=== PATIENT | female | born 1930 | race Caucasian/White ===

== ENCOUNTER 2017-11-18 10:50 | Outpatient (CLI) | payer MEDICARE ==
--- NOTE | 2017-11-18 12:55 | ULT ---
BILATERAL RENAL ULTRASOUND: HISTORY: An 87-year-old female with recurrent UTIs. FINDINGS: The right kidney measures 8 cm in length, and the left kidney measures 9.4 cm in length. No focal ma ss or hydronephrosis is seen on either side. There is mild cortical thinning. There is a small amou nt of urine in the urinary bladder with a volume of 52 mL. IMPRESSION: No evidence of high-grade obstruction. POS: JULIANNE
== END 2017-11-18 10:51 | disposition home or self-care (01) ==
LOC: SCSULT 10:50
PROVIDERS: ATTEND Urology
DX: N39.0 Urinary tract infection, site not specified (principal)
CPT/HCPCS: 76770

== ENCOUNTER 2018-01-13 10:30 | Outpatient (CLI) | payer MEDICARE ==
--- NOTE | 2018-01-13 12:21 | RAD ---
BARIUM SWALLOW ESOPHAGUS: HISTORY: An 88-year-old female with a history of dysphagia, as well as gastroesophageal reflux disease without esophagitis. Chronic cough. FINDINGS: Swallowing function is within normal limits. No lenin aspiration is noted. There is some tertiary p eristalsis of the mid and distal esophagus. There is a moderately large sliding hiatal hernia. Kerrie roesophageal reflux was documented. No stricture, ulcer, or mass. IMPRESSION: Moderate sized hiatal hernia with gastroesophageal reflux. Minimal tertiary peristalsis. No strictu re, ulcer, or mass, Swallowed barium tablet passed readily into the herniated stomach. POS: MEIR
== END 2018-01-13 10:31 | disposition home or self-care (01) ==
LOC: RAD 10:30
PROVIDERS: ATTEND Internal Medicine Gastroenterology
DX: K21.9 Gastro-esophageal reflux disease without esophagitis (principal); R13.10 Dysphagia, unspecified; R05 Cough; R11.0 Nausea; K44.9 Diaphragmatic hernia without obstruction or gangrene; R19.2 Visible peristalsis
CPT/HCPCS: 74220

== ENCOUNTER 2020-03-20 10:23 | Outpatient (CLI) | payer MEDICARE ==
--- NOTE | 2020-03-20 13:46 | RAD ---
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 Cardiac silhouette remains enla rged. Pulmonary vasculature is within normal limits. Mild chronic lung changes are again seen. Vascular calcifications are seen in the thoracic aorta. Hiatal hernia is seen in the midline lower me diastinum. Osteopenia is present. Single contrast esophagram was performed. There is decrease in primary esophageal peristalsis with te rtiary contractions seen throughout the exam. Again noted is evidence of a hiatal hernia with the fundus and proximal body of the stomach above the level of the hemidiaphragm similar to prior exam. N o focal persistent narrowing is seen within the esophagus. A 12.5 mm barium tablet was administered during the exam which traverses the esophagus and GE junction freely and without holdup. No gastroeso phageal reflux was demonstrated during this exam. IMPRESSION: 1. Decreased primary esophageal peristalsis with tertiary contractions. 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 2. Evidence of hiatal hernia. 3. A 12.5 mm barium tablet traversed the esophagus and GE junction freely and without holdup.
== END 2020-03-20 10:24 | disposition home or self-care (01) ==
LOC: RAD 10:23
PROVIDERS: ATTEND Internal Medicine
DX: R13.10 Dysphagia, unspecified (principal); R10.13 Epigastric pain; K44.9 Diaphragmatic hernia without obstruction or gangrene; K22.8 Other specified diseases of esophagus
CPT/HCPCS: 74220

== ENCOUNTER 2020-10-18 09:47 | Inpatient (IN) | payer MEDICARE ==
[2020-10-18 10:26] LABS: #Basophils 0.1 thou/uL (0.0-0.2); #Eosinphils 0.3 thou/uL (0.0-0.7); #Lymphocytes 1.5 thou/uL (1.20-3.40); #Monocytes 0.9 thou/uL (0.11-0.59); #Neutrophils 5.2 thou/uL (1.40-6.50); %Basophils 0.8 % (0.0-1.0); %Eosinophils 3.9 % (0.0-10.0); %Monocytes 11.7 % (0.0-10.0); %Neutrophils 64.6 % (42.0-75.0); Hemoglobin 12.1 g/dL (12.0-16.0); Mean Corpuscular HGB CONC 31.7 g/dL (32.0-36.0); Mean Corpuscular Hemoglobin 29.4 pg (27.0-31.0); Mean Corpuscular Volume 92.8 fL (78.0-98.0); Mean Platelet Volume 9.1 fL (7.4-10.4); Platelet Count 241 thou/uL (130-400); RBC Distribution Width 12.6 % (11.5-14.5)
[2020-10-18] MEDS ORDERED: Furosemide 40 MG/4 ML VIAL ONE (10:39)
[2020-10-18] MEDS ORDERED: Nitroglycerin 2% Ointment 1 INCH/1 GM Packet ONE (10:39)
[2020-10-18 10:50] LABS: ALT (SGPT) 15 U/L (8-55); AST (SGOT) 23 U/L (5-34); Albumin 4.4 g/dL (3.4-4.8); Alkaline Phosphatase 75 U/L (40-110); Anion Gap 13 mmol/L (10-20); BUN (Urea Nitrogen) 21 mg/dL (9.8-20.1); Bilirubin, Total 0.4 mg/dL (0.2-1.2); Calc. Creatinine Clearance 0 mL/min (70-130); Calcium 10.4 mg/dL (7.8-10.44); Carbon Dioxide 32 mmol/L (23-31); Chloride 92 mmol/L (98-107); Globulin 3.6 g/dL (2.4-3.5); Glucose 124 mg/dL (83-110); Potassium 3.8 mmol/L (3.5-5.1); Sodium 133 mmol/L (136-145)
[2020-10-18 11:06] LABS: Actual Bicarbonate (HCO3a) 34.1 mEq/L (22-28); Analyzer IN Cardio ER; Base Excess (BEa) 8.3 mEq/L (-2.0 to +3.0); CO2 Tension 53.2 mmHg (35.0-45.0); Calcium, Ionized (arterial) 1.24 mmol/L (1.12-1.30); Carboxyhemoglobin (COHb) 0.4 gm% (0.0-3.0); Hemoglobin (Hb) 11.8 g/dL (12.0-16.0); pH, Arterial 7.43 (7.35-7.45)
[2020-10-18 11:08] LABS: O2 Tension (PaO2), arterial 56.9 mmHg (> 60.0); Puncture Site RBA
[2020-10-18 11:12] LABS: CKMB 1.8 ng/mL (0-6.6)
[2020-10-18 11:53] LABS: SARS-CoV-2 NAA Rapid Test Not Detected (NotDetected)
[2020-10-18] MEDS ORDERED: Aspirin Chewable 81 MG TAB ONE (12:07)
[2020-10-18] MEDS ORDERED: Acetaminophen 325 MG TAB PO PRN (12:54)
[2020-10-18] MEDS ORDERED: Iopamidol-370 76% 500 ML 1 ML ONE (13:02)
[2020-10-18] MEDS ORDERED: Enoxaparin Sodium 30 MG/0.3 ML SYRINGE SC SCH (13:15)
[2020-10-18 13:52] LABS: Bacteria/HPF 1+ HPF (None Seen); Bilirubin Negative (Negative); Blood, Urine Negative (Negative); Clarity Clear (Clear); Glucose, Urine (Dipstick) Normal (Negative); Ketone, Urine Negative (Negative); Leukocyte Negative Leu/uL (Negative); Nitrite 1+ (Negative); Protein, Urine (Dipstick) Negative (Neg-Trace); RBC/HPF None Seen HPF (0-3); Specific Gravity, Urine 1.013 (1.002-1.036); Squamous Epithelial None Seen HPF (0-3); Urobilinogen Normal mg/dL (Less than 2); WBC/HPF None Seen HPF (0-3); pH, Urine 6.5 (5.0-9.0)
[2020-10-18 18:35] LABS: CKMB 1.5 ng/mL (0-6.6)
[2020-10-18] MEDS ORDERED: Furosemide 20 MG/2 ML VIAL SLOW IVP SCH (21:00)
[2020-10-18] MEDS ORDERED: Acetaminophen 500 MG TAB PO PRN (21:02)
[2020-10-18] MEDS ORDERED: Lisinopril 10 MG TAB PO SCH (21:45)
[2020-10-18] MEDS ORDERED: Carvedilol 6.25 MG TAB PO SCH (21:45)
[2020-10-18] MEDS ORDERED: Atorvastatin Calcium 40 MG TAB PO SCH (21:45)
[2020-10-19] MEDS: Guaifenesin DM 100-10/5 ML UDCUP PO SCH ×6 (00:44→19:56)
[2020-10-19] MEDS ORDERED: Carvedilol 6.25 MG TAB PO SCH (01:29)
[2020-10-19] MEDS ORDERED: Enoxaparin Sodium 40 MG/0.4 ML SYRINGE SC SCH (01:30)
[2020-10-19] MEDS ORDERED: Heparin 10,000 UNITS/ 10 ML VIAL SLOW IVP SCH (01:30)
[2020-10-19] MEDS ORDERED: Heparin 25,000 units/D5W 500 ML IVPB SCH (01:30)
[2020-10-19] MEDS ORDERED: Enoxaparin Sodium 60 MG/0.6 ML SYRINGE SC SCH (02:00)
[2020-10-19 02:20] LABS: Eosinophils 1 % (0-10); Hemoglobin 11.2 g/dL (12.0-16.0); Hypochromia SLIGHT = 6-15 cells (100X) (0-5/hpf); Lymphocytes 19 % (21-51); MDiff Complete? YES; Mean Corpuscular HGB CONC 33.4 g/dL (32.0-36.0); Mean Corpuscular Hemoglobin 30.7 pg (27.0-31.0); Mean Corpuscular Volume 91.7 fL (78.0-98.0); Mean Platelet Volume 8.9 fL (7.4-10.4); Monocytes 14 % (0-10); Neutrophil 66 % (42-75); Platelet Count 209 thou/uL (130-400); Platelet Morphology Comment Appears Adequate; RBC Distribution Width 12.6 % (11.5-14.5); Red Blood Cell (RBC) Count 3.65 mill/uL (4.20-5.40); White Blood Cell (WBC) Count 6.1 thou/uL (4.8-10.8)
[2020-10-19 02:47] LABS: Anion Gap 17 mmol/L (10-20); BUN (Urea Nitrogen) 18 mg/dL (9.8-20.1); Calc. Creatinine Clearance 33 mL/min (70-130); Calcium 9.9 mg/dL (7.8-10.44); Carbon Dioxide 29 mmol/L (23-31); Chloride 90 mmol/L (98-107); Glucose 124 mg/dL (83-110); Magnesium 1.5 mg/dL (1.6-2.6); Potassium 3.1 mmol/L (3.5-5.1); Sodium 133 mmol/L (136-145)
[2020-10-19] MEDS ORDERED: Potassium Chloride 40 MEQ in Sodium Chloride 0.9% 250 ML 250 ML IVPB SCH (03:00)
[2020-10-19 05:43] LABS: CKMB 2.2 ng/mL (0-6.6)
[2020-10-19] MEDS: Amlodipine 5 MG TAB PO SCH (08:38)
[2020-10-19] MEDS: Aspirin 81 mg Enteric Coated Tablet PO SCH (08:38)
[2020-10-19] MEDS: Famotidine 20 MG TAB PO SCH (08:39)
[2020-10-19] MEDS: Calcium Carbonate 600 MG + Vit D TAB PO SCH (08:39)
[2020-10-19] MEDS: Carvedilol 6.25 MG TAB PO SCH ×2 (08:39→19:57)
[2020-10-19] MEDS: Lisinopril 10 MG TAB PO SCH ×2 (08:40→19:58)
[2020-10-19] MEDS ORDERED: Furosemide 40 MG/4 ML VIAL SLOW IVP SCH (09:00)
[2020-10-19] MEDS ORDERED: Enoxaparin Sodium 30 MG/0.3 ML SYRINGE SC SCH (09:00)
[2020-10-19] MEDS ORDERED: cefTRIAXone\\ROCEPHIN 1 GM in Sodium Chloride 0.9% 100 ML IVPB SCH (10:00)
[2020-10-19] MEDS: Amiodarone 450 MG in Dextrose 5% in Water 250 ML IVPB SCH (18:28)
[2020-10-19] MEDS: Potassium Chloride 10 MEQ TAB PO SCH (19:57)
[2020-10-19] MEDS: Atorvastatin Calcium 40 MG TAB PO SCH (19:58)
[2020-10-19] MEDS: Enoxaparin Sodium 40 MG/0.4 ML SYRINGE SC SCH (19:58)
[2020-10-19] MEDS ORDERED: Apixaban 2.5 MG TAB PO SCH (21:00)
[2020-10-20] MEDS: Guaifenesin DM 100-10/5 ML UDCUP PO SCH ×6 (00:32→20:59)
[2020-10-20] MEDS: Amiodarone 450 MG in Dextrose 5% in Water 250 ML IVPB SCH (03:20)
[2020-10-20 06:51] LABS: Anion Gap 15 mmol/L (10-20); BUN (Urea Nitrogen) 21 mg/dL (9.8-20.1); Calc. Creatinine Clearance 33 mL/min (70-130); Carbon Dioxide 30 mmol/L (23-31); Chloride 92 mmol/L (98-107); Glucose 122 mg/dL (83-110); Magnesium 1.7 mg/dL (1.6-2.6); Phosphorus 3.9 mg/dL (2.3-4.7); Potassium 3.9 mmol/L (3.5-5.1); Sodium 133 mmol/L (136-145)
[2020-10-20 06:58] LABS: Hemoglobin 11.9 g/dL (12.0-16.0); Mean Corpuscular HGB CONC 31.5 g/dL (32.0-36.0); Mean Corpuscular Hemoglobin 29.1 pg (27.0-31.0); Mean Corpuscular Volume 92.4 fL (78.0-98.0); Mean Platelet Volume 9.7 fL (7.4-10.4); Platelet Count 198 thou/uL (130-400); RBC Distribution Width 12.6 % (11.5-14.5); Red Blood Cell (RBC) Count 4.07 mill/uL (4.20-5.40); White Blood Cell (WBC) Count 7.1 thou/uL (4.8-10.8)
[2020-10-20 06:59] LABS: Eosinophils 11 % (0-10); Lymphocytes 31 % (21-51); MDiff Complete? YES; Monocytes 11 % (0-10); Neutrophil 46 % (42-75); Platelet Morphology Comment Appears Adequate; Reactive Lymphocytes 1 % (0-10)
[2020-10-20] MEDS: Amlodipine 5 MG TAB PO SCH (08:59)
[2020-10-20] MEDS: Enoxaparin Sodium 40 MG/0.4 ML SYRINGE SC SCH ×2 (09:00→20:58)
[2020-10-20] MEDS: Aspirin 81 mg Enteric Coated Tablet PO SCH (09:00)
[2020-10-20] MEDS: Carvedilol 6.25 MG TAB PO SCH ×2 (09:00→20:58)
[2020-10-20] MEDS: Calcium Carbonate 600 MG + Vit D TAB PO SCH (09:00)
[2020-10-20] MEDS: Famotidine 20 MG TAB PO SCH (09:00)
[2020-10-20] MEDS: Lisinopril 10 MG TAB PO SCH ×2 (09:00→20:58)
[2020-10-20] MEDS: Potassium Chloride 10 MEQ TAB PO SCH ×2 (09:00→20:58)
[2020-10-20] MEDS ORDERED: Furosemide 40 MG TAB PO SCH (09:00)
[2020-10-20] MEDS: Cephalexin 250 MG CAP PO SCH ×2 (11:42→16:31)
[2020-10-20 12:03] VITALS: BMI 17.3
[2020-10-20] MEDS: Atorvastatin Calcium 40 MG TAB PO SCH (20:59)
[2020-10-21] MEDS: Cephalexin 250 MG CAP PO SCH ×3 (01:07→10:29)
[2020-10-21] MEDS: Guaifenesin DM 100-10/5 ML UDCUP PO SCH ×3 (01:08→08:24)
[2020-10-21 07:03] LABS: Anion Gap 12 mmol/L (10-20); BUN (Urea Nitrogen) 28 mg/dL (9.8-20.1); Calc. Creatinine Clearance 32 mL/min (70-130); Calcium 9.7 mg/dL (7.8-10.44); Carbon Dioxide 33 mmol/L (23-31); Chloride 91 mmol/L (98-107); Glucose 119 mg/dL (83-110); Potassium 4.2 mmol/L (3.5-5.1); Sodium 132 mmol/L (136-145)
[2020-10-21 08:23] VITALS: TEMP 97.6
[2020-10-21] MEDS: Aspirin 81 mg Enteric Coated Tablet PO SCH (08:24)
[2020-10-21] MEDS: Calcium Carbonate 600 MG + Vit D TAB PO SCH (08:24)
[2020-10-21] MEDS: Enoxaparin Sodium 40 MG/0.4 ML SYRINGE SC SCH (08:24)
[2020-10-21] MEDS: Famotidine 20 MG TAB PO SCH (08:24)
[2020-10-21] MEDS: Amlodipine 5 MG TAB PO SCH (08:24)
[2020-10-21] MEDS: Carvedilol 6.25 MG TAB PO SCH (08:24)
[2020-10-21] MEDS: Potassium Chloride 10 MEQ TAB PO SCH (08:25)
[2020-10-21] MEDS: Lisinopril 10 MG TAB PO SCH (08:25)
[2020-10-21] MEDS ORDERED: Furosemide 20 MG TAB PO SCH (09:00)
[2020-10-21] MEDS ORDERED: Apixaban 2.5 MG TAB PO SCH (10:15)
[2020-10-21 11:32] VITALS: BP 165/74
== END 2020-10-21 13:42 | disposition home or self-care (01) | DRG 291 ==
LOC: ERS 09:47 → ERHOLD 12:34 → 2NO 16:32
PROVIDERS: ADMIT Student in an Organized Health Care Education/Training Program; ATTEND Student in an Organized Health Care Education/Training Program
DX: I13.0 Hypertensive heart and chronic kidney disease with heart failure and stage 1 through stage 4 chronic kidney disease, or unspecified chronic kidney disease (principal); E43 Unspecified severe protein-calorie malnutrition; I50.33 Acute on chronic diastolic (congestive) heart failure; N39.0 Urinary tract infection, site not specified; I25.810 Atherosclerosis of coronary artery bypass graft(s) without angina pectoris; Z68.1 Body mass index [BMI] 19.9 or less, adult; I48.91 Unspecified atrial fibrillation; Z95.1 Presence of aortocoronary bypass graft; N18.2 Chronic kidney disease, stage 2 (mild); I71.4 Abdominal aortic aneurysm, without rupture; Z88.2 Allergy status to sulfonamides; Z79.82 Long term (current) use of aspirin; Z95.5 Presence of coronary angioplasty implant and graft; Z90.710 Acquired absence of both cervix and uterus; K21.00 Gastro-esophageal reflux disease with esophagitis, without bleeding; I71.2 Thoracic aortic aneurysm, without rupture; E78.5 Hyperlipidemia, unspecified; Z66 Do not resuscitate; M81.0 Age-related osteoporosis without current pathological fracture; I08.0 Rheumatic disorders of both mitral and aortic valves
CPT/HCPCS: 0240U; 36415; 36600; 71045; 71275; 80048; 80053; 81003; 81015; 82553; 82805; 83735; 83880; 84100; 84443; 84484; 85025; 87077; 87086; 87186; 93005; 93010; 93306; 96374; J0282; J0696; J1650; J1940; J3475; J3480; J3490; J7050; J7070; Q9967

== ENCOUNTER 2020-10-25 02:54 | Inpatient (IN) | payer MEDICARE ==
[2020-10-25] MEDS ORDERED: cefTRIAXone\\ROCEPHIN 1 GM VIAL ONE (03:10)
[2020-10-25] MEDS ORDERED: Pantoprazole 40 MG VIAL ONE ×2 (03:11→03:14)
[2020-10-25 03:26] LABS: Bilirubin Negative (Negative); Blood, Urine Negative (Negative); Clarity Clear (Clear); Glucose, Urine (Dipstick) Normal (Negative); Ketone, Urine Negative (Negative); Leukocyte Negative Leu/uL (Negative); Nitrite Negative (Negative); Protein, Urine (Dipstick) 10 mg/dL (Neg-Trace); Specific Gravity, Urine 1.017 (1.002-1.036); Urobilinogen Normal mg/dL (Less than 2)
[2020-10-25 03:48] LABS: #Eosinphils 0.5 thou/uL (0.0-0.7); #Monocytes 0.9 thou/uL (0.11-0.59); %Basophils 0.6 % (0.0-1.0); %Eosinophils 7.8 % (0.0-10.0); %Lymphocytes 31.1 % (21.0-51.0); %Neutrophils 46.6 % (42.0-75.0); Mean Corpuscular HGB CONC 33.9 g/dL (32.0-36.0); Mean Corpuscular Volume 91.4 fL (78.0-98.0); Mean Platelet Volume 9.4 fL (7.4-10.4); Platelet Count 179 thou/uL (130-400); RBC Distribution Width 12.3 % (11.5-14.5); Red Blood Cell (RBC) Count 3.24 mill/uL (4.20-5.40); White Blood Cell (WBC) Count 6.4 thou/uL (4.8-10.8)
[2020-10-25 03:50] LABS: PTT 30.8 sec (22.9-36.1); Prothrombin Time 13.6 sec (12.0-14.7)
[2020-10-25 04:04] LABS: ALT (SGPT) 17 U/L (8-55); AST (SGOT) 20 U/L (5-34); Albumin 3.5 g/dL (3.4-4.8); Alkaline Phosphatase 60 U/L (40-110); Anion Gap 16 mmol/L (10-20); BUN (Urea Nitrogen) 38 mg/dL (9.8-20.1); Bilirubin, Total 0.3 mg/dL (0.2-1.2); Calc. Creatinine Clearance 0 mL/min (70-130); Calcium 9.2 mg/dL (7.8-10.44); Carbon Dioxide 24 mmol/L (23-31); Chloride 98 mmol/L (98-107); Glucose 112 mg/dL (83-110); Potassium 3.8 mmol/L (3.5-5.1); Protein, Total 6.5 g/dL (5.8-8.1); Sodium 134 mmol/L (136-145)
[2020-10-25] MEDS ORDERED: Acetaminophen 325 MG TAB PO PRN (04:34)
[2020-10-25] MEDS ORDERED: Amlodipine 5 MG TAB ONE (09:20)
[2020-10-25] MEDS ORDERED: Lisinopril 10 MG TAB ONE (09:20)
[2020-10-25] MEDS: Amlodipine 5 MG TAB PO SCH (09:28)
[2020-10-25] MEDS: Calcium Carbonate 600 MG + Vit D TAB PO SCH (09:28)
[2020-10-25] MEDS: Carvedilol 6.25 MG TAB PO SCH ×2 (09:28→20:08)
[2020-10-25] MEDS: Potassium Chloride 10 MEQ TAB PO SCH ×2 (09:28→19:04)
[2020-10-25] MEDS: Pantoprazole 40 MG VIAL IVP SCH ×2 (09:29→20:10)
[2020-10-25] MEDS: Lisinopril 10 MG TAB PO SCH ×2 (09:29→20:10)
[2020-10-25] MEDS: Furosemide 20 MG TAB PO SCH (09:29)
[2020-10-25] MEDS: Guaifenesin DM 100-10/5 ML UDCUP PO SCH ×4 (09:29→20:10)
[2020-10-25 09:54] LABS: SARS-CoV-2 PCR by NAA Not Detected (NotDetected)
[2020-10-25 10:25] LABS: #Basophils 0.1 thou/uL (0.0-0.2); #Eosinphils 0.4 thou/uL (0.0-0.7); #Lymphocytes 1.4 thou/uL (1.20-3.40); #Monocytes 0.7 thou/uL (0.11-0.59); #Neutrophils 2.8 thou/uL (1.40-6.50); %Basophils 1.1 % (0.0-1.0); %Eosinophils 6.9 % (0.0-10.0); %Lymphocytes 26.6 % (21.0-51.0); %Monocytes 12.2 % (0.0-10.0); %Neutrophils 53.3 % (42.0-75.0); Hemoglobin 9.7 g/dL (12.0-16.0); Mean Corpuscular HGB CONC 32.9 g/dL (32.0-36.0); Mean Corpuscular Hemoglobin 30.3 pg (27.0-31.0); Mean Platelet Volume 9.2 fL (7.4-10.4); Platelet Count 180 thou/uL (130-400); RBC Distribution Width 12.3 % (11.5-14.5); Red Blood Cell (RBC) Count 3.21 mill/uL (4.20-5.40); White Blood Cell (WBC) Count 5.3 thou/uL (4.8-10.8)
[2020-10-25] MEDS ORDERED: Atorvastatin Calcium 40 MG TAB PO SCH (21:00)
[2020-10-26] MEDS: Guaifenesin DM 100-10/5 ML UDCUP PO SCH ×2 (02:15→05:08)
[2020-10-26 05:19] LABS: #Eosinphils 0.5 thou/uL (0.0-0.7); #Lymphocytes 1.6 thou/uL (1.20-3.40); #Monocytes 0.9 thou/uL (0.11-0.59); #Neutrophils 3.2 thou/uL (1.40-6.50); %Basophils 0.8 % (0.0-1.0); %Eosinophils 8.6 % (0.0-10.0); %Lymphocytes 25.5 % (21.0-51.0); %Monocytes 14.1 % (0.0-10.0); Hemoglobin 10.7 g/dL (12.0-16.0); Mean Corpuscular HGB CONC 31.9 g/dL (32.0-36.0); Mean Corpuscular Hemoglobin 29.4 pg (27.0-31.0); Mean Corpuscular Volume 92.1 fL (78.0-98.0); Mean Platelet Volume 9.6 fL (7.4-10.4); Platelet Count 199 thou/uL (130-400); RBC Distribution Width 12.4 % (11.5-14.5); Red Blood Cell (RBC) Count 3.63 mill/uL (4.20-5.40); White Blood Cell (WBC) Count 6.3 thou/uL (4.8-10.8)
[2020-10-26 05:46] LABS: Anion Gap 14 mmol/L (10-20); BUN (Urea Nitrogen) 20 mg/dL (9.8-20.1); Calc. Creatinine Clearance 30 mL/min (70-130); Calcium 9.5 mg/dL (7.8-10.44); Carbon Dioxide 28 mmol/L (23-31); Chloride 95 mmol/L (98-107); Glucose 109 mg/dL (83-110); Potassium 4.1 mmol/L (3.5-5.1); Sodium 133 mmol/L (136-145)
[2020-10-26] MEDS ORDERED: Guaifenesin DM 100-10/5 ML UDCUP PO PRN (06:13)
[2020-10-26] MEDS: Furosemide 20 MG TAB PO SCH (09:51)
[2020-10-26] MEDS: Calcium Carbonate 600 MG + Vit D TAB PO SCH (09:51)
[2020-10-26] MEDS: Amlodipine 5 MG TAB PO SCH (09:51)
[2020-10-26] MEDS: Potassium Chloride 10 MEQ TAB PO SCH (09:51)
[2020-10-26] MEDS: Carvedilol 6.25 MG TAB PO SCH (09:51)
[2020-10-26] MEDS: Lisinopril 10 MG TAB PO SCH (09:54)
[2020-10-26] MEDS: Pantoprazole 40 MG VIAL IVP SCH (09:58)
[2020-10-26 12:11] VITALS: BP 150/69; TEMP 97.6
[2020-10-26 12:32] VITALS: BMI 18.1
[2020-10-26] MEDS ORDERED: Nystatin Cream 15 GM TUBE TOP SCH (21:00)
[2020-10-26] MEDS ORDERED: Non-Formulary Item 1 EACH (Zolpidem Tartrate [Ambien] 10 MG Tablet) PO SCH (21:00)
[2020-10-26] MEDS ORDERED: Zolpidem Tartrate 5 MG TAB PO SCH (21:00)
[2020-10-27] MEDS ORDERED: Famotidine 20 MG TAB PO SCH (09:00)
== END 2020-10-26 13:37 | disposition home or self-care (01) | DRG 394 ==
LOC: ERS 02:54 → ERHOLD 04:06 → 2SE 18:41
PROVIDERS: ADMIT Student in an Organized Health Care Education/Training Program; ATTEND Student in an Organized Health Care Education/Training Program
DX: K64.8 Other hemorrhoids (principal); I13.0 Hypertensive heart and chronic kidney disease with heart failure and stage 1 through stage 4 chronic kidney disease, or unspecified chronic kidney disease; I50.32 Chronic diastolic (congestive) heart failure; D62 Acute posthemorrhagic anemia; E44.1 Mild protein-calorie malnutrition; Z68.1 Body mass index [BMI] 19.9 or less, adult; I25.10 Atherosclerotic heart disease of native coronary artery without angina pectoris; K21.00 Gastro-esophageal reflux disease with esophagitis, without bleeding; K44.9 Diaphragmatic hernia without obstruction or gangrene; I35.0 Nonrheumatic aortic (valve) stenosis; I48.91 Unspecified atrial fibrillation; Z20.822 Contact with and (suspected) exposure to COVID-19; I71.4 Abdominal aortic aneurysm, without rupture; N18.9 Chronic kidney disease, unspecified; Z95.1 Presence of aortocoronary bypass graft; Z88.2 Allergy status to sulfonamides; Z79.82 Long term (current) use of aspirin; Z79.01 Long term (current) use of anticoagulants; Z90.710 Acquired absence of both cervix and uterus
CPT/HCPCS: 36415; 51701; 71045; 80048; 80053; 81003; 83880; 85025; 85610; 85730; 86850; 86900; 86901; 87635; 93005; 96365; 96375; C9113; J0696; U0003; U0005

== ENCOUNTER 2020-11-09 07:57 | Inpatient (IN) | payer MEDICARE ==
[2020-11-09] MEDS ORDERED: Atropine Sulfate 1 mg/10 ml Syringe ONE (08:16)
[2020-11-09] MEDS ORDERED: DOPamine 400 MG/D5W 250 ML 250 ML ONE (08:27)
[2020-11-09 08:39] LABS: #Eosinphils 0.3 thou/uL (0.0-0.7); #Lymphocytes 1.3 thou/uL (1.20-3.40); #Monocytes 0.9 thou/uL (0.11-0.59); #Neutrophils 5.3 thou/uL (1.40-6.50); %Basophils 0.4 % (0.0-1.0); %Eosinophils 3.5 % (0.0-10.0); %Lymphocytes 16.8 % (21.0-51.0); %Monocytes 11.4 % (0.0-10.0); %Neutrophils 67.9 % (42.0-75.0); Hemoglobin 9.6 g/dL (12.0-16.0); Mean Corpuscular HGB CONC 31.1 g/dL (32.0-36.0); Mean Corpuscular Hemoglobin 28.9 pg (27.0-31.0); Mean Corpuscular Volume 92.8 fL (78.0-98.0); Mean Platelet Volume 9.5 fL (7.4-10.4); Platelet Count 190 thou/uL (130-400); RBC Distribution Width 13.4 % (11.5-14.5); Red Blood Cell (RBC) Count 3.31 mill/uL (4.20-5.40); White Blood Cell (WBC) Count 7.8 thou/uL (4.8-10.8)
[2020-11-09 08:59] LABS: ALT (SGPT) 19 U/L (8-55); AST (SGOT) 20 U/L (5-34); Albumin 3.6 g/dL (3.4-4.8); Alkaline Phosphatase 60 U/L (40-110); Anion Gap 18 mmol/L (10-20); BUN (Urea Nitrogen) 66 mg/dL (9.8-20.1); Bilirubin, Total 0.4 mg/dL (0.2-1.2); Calc. Creatinine Clearance 0 mL/min (70-130); Calcium 9.2 mg/dL (7.8-10.44); Carbon Dioxide 24 mmol/L (23-31); Chloride 93 mmol/L (98-107); Globulin 2.9 g/dL (2.4-3.5); Glucose 165 mg/dL (83-110); Potassium 4.5 mmol/L (3.5-5.1); Protein, Total 6.5 g/dL (5.8-8.1); Sodium 130 mmol/L (136-145)
[2020-11-09 09:21] LABS: CKMB 1.1 ng/mL (0-6.6)
[2020-11-09] MEDS ORDERED: Aspirin Chewable 81 MG TAB ONE (10:19)
[2020-11-09] MEDS ORDERED: Ondansetron PF 4 MG/2 ML Vial ONE ×2 (10:39→12:23)
[2020-11-09] MEDS ORDERED: Lidocaine Viscous Sol 2% 15 ml UD Cup ONE (11:25)
[2020-11-09] MEDS ORDERED: Mag-Al 1200 mg/1200 mg/30 ML UDCUP ONE (11:25)
[2020-11-09] MEDS ORDERED: DOPamine 400 MG/D5W 250 ML 250 ML IVPB SCH (11:45)
[2020-11-09] MEDS ORDERED: DOBUTamine 500 mg/250 ml 250 ML ONE (12:27)
[2020-11-09] MEDS: Nystatin 500,000 UNITS/5 ML UDCUP SSW SCH ×3 (13:00→20:27)
[2020-11-09] MEDS ORDERED: DOBUTamine 500 mg/250 ml 250 ML IVPB SCH (14:00)
[2020-11-09 15:00] LABS: Bilirubin Negative (Negative); Blood, Urine Negative (Negative); Clarity Clear (Clear); Glucose, Urine (Dipstick) Normal (Negative); Ketone, Urine Negative (Negative); Leukocyte Negative Leu/uL (Negative); Nitrite Negative (Negative); Protein, Urine (Dipstick) Negative (Neg-Trace); Specific Gravity, Urine 1.014 (1.002-1.036); Urobilinogen Normal mg/dL (Less than 2)
[2020-11-09] MEDS ORDERED: Lactated Ringer's 1,000 ML IV SCH (17:15)
[2020-11-09 17:30] LABS: Phosphorus 5.8 mg/dL (2.3-4.7)
[2020-11-09] MEDS: Atorvastatin Calcium 40 MG TAB PO SCH (20:27)
[2020-11-09] MEDS: guaiFENesin ER 600 MG TAB PO SCH (20:27)
[2020-11-09] MEDS: Ondansetron ODT 4 MG TAB PO PRN (20:35)
[2020-11-09 20:45] LABS: SARS-CoV-2 PCR by NAA Not Detected (NotDetected)
[2020-11-10] MEDS: Ondansetron ODT 4 MG TAB PO PRN ×2 (02:27→08:16)
[2020-11-10 05:11] LABS: #Eosinphils 0.1 thou/uL (0.0-0.7); #Lymphocytes 0.9 thou/uL (1.20-3.40); #Monocytes 1.3 thou/uL (0.11-0.59); #Neutrophils 8.2 thou/uL (1.40-6.50); %Basophils 0.3 % (0.0-1.0); %Eosinophils 1.4 % (0.0-10.0); %Lymphocytes 8.8 % (21.0-51.0); %Monocytes 12.1 % (0.0-10.0); %Neutrophils 77.5 % (42.0-75.0); Hemoglobin 9.5 g/dL (12.0-16.0); Mean Corpuscular HGB CONC 30.9 g/dL (32.0-36.0); Mean Corpuscular Hemoglobin 28.3 pg (27.0-31.0); Mean Corpuscular Volume 91.6 fL (78.0-98.0); Mean Platelet Volume 9.3 fL (7.4-10.4); Platelet Count 189 thou/uL (130-400); RBC Distribution Width 13.3 % (11.5-14.5); Red Blood Cell (RBC) Count 3.35 mill/uL (4.20-5.40); White Blood Cell (WBC) Count 10.6 thou/uL (4.8-10.8)
[2020-11-10 05:56] LABS: Anion Gap 12 mmol/L (10-20); BUN (Urea Nitrogen) 46 mg/dL (9.8-20.1); Calc. Creatinine Clearance 19 mL/min (70-130); Calcium 10.4 mg/dL (7.8-10.44); Carbon Dioxide 31 mmol/L (23-31); Chloride 98 mmol/L (98-107); Glucose 123 mg/dL (83-110); Sodium 137 mmol/L (136-145)
[2020-11-10] MEDS: Aspirin 81 mg Enteric Coated Tablet PO SCH (08:17)
[2020-11-10] MEDS: predniSONE 20 MG TAB PO SCH (08:17)
[2020-11-10] MEDS: Acetaminophen 325 MG TAB PO PRN (08:18)
[2020-11-10] MEDS: guaiFENesin ER 600 MG TAB PO SCH ×2 (08:18→20:04)
[2020-11-10] MEDS: Benzonatate 100 MG CAP PO PRN (08:27)
[2020-11-10] MEDS ORDERED: Famotidine 20 MG TAB PO SCH (09:00)
[2020-11-10] MEDS ORDERED: Furosemide 40 MG/4 ML VIAL SLOW IVP SCH (09:00)
[2020-11-10] MEDS: Nystatin 500,000 UNITS/5 ML UDCUP SSW SCH ×4 (11:32→20:04)
[2020-11-10] MEDS ORDERED: DOPamine 400 MG/D5W 250 ML 250 ML ONE (11:42)
[2020-11-10] MEDS: Potassium Chloride 20 MEQ TAB PO SCH (17:12)
[2020-11-10] MEDS: Atorvastatin Calcium 40 MG TAB PO SCH (20:04)
[2020-11-10] MEDS: Cefepime 1 GM in Sodium Chloride 0.9% 100 ML IVPB SCH (20:04)
[2020-11-11] MEDS ORDERED: Digoxin 0.5 MG/2 ML AMP SLOW IVP SCH (01:00)
[2020-11-11] MEDS: Diltiazem HCl 125 MG, Admixture Fee 1 EACH in Sodium Chloride 0.9% 100 ML IVPB SCH ×2 (01:04→17:43)
[2020-11-11 04:31] LABS: #Lymphocytes 1.4 thou/uL (1.20-3.40); #Monocytes 1.6 thou/uL (0.11-0.59); #Neutrophils 7.9 thou/uL (1.40-6.50); %Basophils 0.3 % (0.0-1.0); %Eosinophils 0.4 % (0.0-10.0); %Monocytes 14.2 % (0.0-10.0); Hemoglobin 8.9 g/dL (12.0-16.0); Mean Corpuscular HGB CONC 32.6 g/dL (32.0-36.0); Mean Platelet Volume 9.6 fL (7.4-10.4); Platelet Count 175 thou/uL (130-400); RBC Distribution Width 13.6 % (11.5-14.5); Red Blood Cell (RBC) Count 2.98 mill/uL (4.20-5.40); White Blood Cell (WBC) Count 10.9 thou/uL (4.8-10.8)
[2020-11-11 04:53] LABS: Anion Gap 10 mmol/L (10-20); BUN (Urea Nitrogen) 37 mg/dL (9.8-20.1); Calc. Creatinine Clearance 25 mL/min (70-130); Calcium 9.1 mg/dL (7.8-10.44); Carbon Dioxide 33 mmol/L (23-31); Chloride 98 mmol/L (98-107); Glucose 106 mg/dL (83-110); Magnesium 1.9 mg/dL (1.6-2.6); Potassium 4.5 mmol/L (3.5-5.1); Sodium 136 mmol/L (136-145)
[2020-11-11] MEDS ORDERED: Furosemide 40 MG/4 ML VIAL SLOW IVP SCH (08:30)
[2020-11-11] MEDS ORDERED: Benzocaine (Dental) 7 GM TUBE TOP PRN (08:32)
[2020-11-11] MEDS: Potassium Chloride 20 MEQ TAB PO SCH ×2 (09:15→17:21)
[2020-11-11] MEDS: predniSONE 20 MG TAB PO SCH (09:15)
[2020-11-11] MEDS: Cefepime 1 GM in Sodium Chloride 0.9% 100 ML IVPB SCH ×2 (09:16→20:34)
[2020-11-11] MEDS: guaiFENesin ER 600 MG TAB PO SCH ×2 (09:16→20:33)
[2020-11-11] MEDS: Aspirin 81 mg Enteric Coated Tablet PO SCH (09:17)
[2020-11-11] MEDS: Nystatin 500,000 UNITS/5 ML UDCUP SSW SCH ×4 (09:18→20:34)
[2020-11-11] MEDS ORDERED: Carvedilol 6.25 MG TAB PO SCH ×2 (10:45→21:00)
[2020-11-11] MEDS: Benzonatate 100 MG CAP PO PRN ×2 (10:53→10:59)
[2020-11-11] MEDS: Atorvastatin Calcium 40 MG TAB PO SCH (20:33)
[2020-11-11] MEDS: Carvedilol 3.125 MG TAB PO SCH (20:33)
[2020-11-12 04:43] LABS: #Eosinphils 0.2 thou/uL (0.0-0.7); #Lymphocytes 1.6 thou/uL (1.20-3.40); #Monocytes 1.3 thou/uL (0.11-0.59); #Neutrophils 6.2 thou/uL (1.40-6.50); %Basophils 0.2 % (0.0-1.0); %Eosinophils 1.6 % (0.0-10.0); %Lymphocytes 17.5 % (21.0-51.0); %Monocytes 14.1 % (0.0-10.0); %Neutrophils 66.6 % (42.0-75.0); Hemoglobin 9.2 g/dL (12.0-16.0); Mean Corpuscular HGB CONC 32.3 g/dL (32.0-36.0); Mean Corpuscular Hemoglobin 30.2 pg (27.0-31.0); Mean Corpuscular Volume 93.5 fL (78.0-98.0); Mean Platelet Volume 9.8 fL (7.4-10.4); Platelet Count 175 thou/uL (130-400); RBC Distribution Width 13.9 % (11.5-14.5); Red Blood Cell (RBC) Count 3.03 mill/uL (4.20-5.40); White Blood Cell (WBC) Count 9.3 thou/uL (4.8-10.8)
[2020-11-12 05:02] LABS: Anion Gap 10 mmol/L (10-20); BUN (Urea Nitrogen) 37 mg/dL (9.8-20.1); Calc. Creatinine Clearance 27 mL/min (70-130); Calcium 9.3 mg/dL (7.8-10.44); Carbon Dioxide 32 mmol/L (23-31); Chloride 100 mmol/L (98-107); Glucose 108 mg/dL (83-110); Magnesium 1.9 mg/dL (1.6-2.6); Potassium 4.6 mmol/L (3.5-5.1); Sodium 137 mmol/L (136-145)
[2020-11-12] MEDS: predniSONE 20 MG TAB PO SCH (09:17)
[2020-11-12] MEDS: Heparin 5,000 UNITS/ML VIAL SC SCH ×3 (09:18→20:38)
[2020-11-12] MEDS: guaiFENesin ER 600 MG TAB PO SCH ×2 (09:18→20:38)
[2020-11-12] MEDS: Carvedilol 3.125 MG TAB PO SCH ×2 (09:18→20:39)
[2020-11-12] MEDS: Nystatin 500,000 UNITS/5 ML UDCUP SSW SCH ×4 (09:18→20:38)
[2020-11-12] MEDS: Potassium Chloride 20 MEQ TAB PO SCH ×2 (09:19→16:24)
[2020-11-12] MEDS: Cefepime 1 GM in Sodium Chloride 0.9% 100 ML IVPB SCH ×2 (09:19→20:33)
[2020-11-12] MEDS: Diltiazem HCl 125 MG, Admixture Fee 1 EACH in Sodium Chloride 0.9% 100 ML IVPB SCH (15:48)
[2020-11-12] MEDS: Atorvastatin Calcium 40 MG TAB PO SCH (20:38)
[2020-11-13 04:19] LABS: #Eosinphils 0.2 thou/uL (0.0-0.7); #Lymphocytes 1.6 thou/uL (1.20-3.40); #Monocytes 1.2 thou/uL (0.11-0.59); #Neutrophils 6.5 thou/uL (1.40-6.50); %Basophils 0.4 % (0.0-1.0); %Eosinophils 1.6 % (0.0-10.0); %Monocytes 12.2 % (0.0-10.0); %Neutrophils 68.7 % (42.0-75.0); Hemoglobin 9.5 g/dL (12.0-16.0); Mean Corpuscular HGB CONC 31.9 g/dL (32.0-36.0); Mean Corpuscular Hemoglobin 29.7 pg (27.0-31.0); Mean Corpuscular Volume 93.1 fL (78.0-98.0); Platelet Count 183 thou/uL (130-400); RBC Distribution Width 13.7 % (11.5-14.5); Red Blood Cell (RBC) Count 3.21 mill/uL (4.20-5.40); White Blood Cell (WBC) Count 9.4 thou/uL (4.8-10.8)
[2020-11-13 04:39] LABS: Anion Gap 12 mmol/L (10-20); BUN (Urea Nitrogen) 29 mg/dL (9.8-20.1); Calc. Creatinine Clearance 34 mL/min (70-130); Calcium 9.4 mg/dL (7.8-10.44); Carbon Dioxide 26 mmol/L (23-31); Chloride 102 mmol/L (98-107); Glucose 106 mg/dL (83-110); Magnesium 1.8 mg/dL (1.6-2.6); Potassium 4.6 mmol/L (3.5-5.1); Sodium 135 mmol/L (136-145)
[2020-11-13] MEDS ORDERED: Vancomycin 1.5 GRAM/300 ML BAG 1.5 GM in Premix Bag 1 BAG IVPB SCH (06:30)
[2020-11-13] MEDS: Carvedilol 3.125 MG TAB PO SCH ×2 (06:39→20:51)
[2020-11-13] MEDS: guaiFENesin ER 600 MG TAB PO SCH ×2 (07:48→20:51)
[2020-11-13] MEDS: Nystatin 500,000 UNITS/5 ML UDCUP SSW SCH ×4 (07:48→20:50)
[2020-11-13] MEDS: predniSONE 20 MG TAB PO SCH (07:48)
[2020-11-13] MEDS: Potassium Chloride 20 MEQ TAB PO SCH ×2 (07:48→17:22)
[2020-11-13] MEDS ORDERED: Lidocaine 1% (PF) 30 ML VIAL ONE (07:56)
[2020-11-13] MEDS ORDERED: CEFAZOLIN 1 GM VIAL ONE (07:56)
[2020-11-13] MEDS ORDERED: Gentamicin 80 MG/2 ML VIAL ONE (07:56)
[2020-11-13] MEDS ORDERED: Fentanyl 100 MCG/2 ML VIAL ONE (08:31)
[2020-11-13] MEDS ORDERED: Midazolam HCl 2 mg/2 ml Vial ONE (08:31)
[2020-11-13] MEDS ORDERED: Iopamidol 370 76% 50 ML VIAL FS ONE (08:50)
[2020-11-13] MEDS ORDERED: HYDROcodone/Acetaminophen 5/325 mg Tablet PO PRN (09:59)
[2020-11-13] MEDS ORDERED: Dronedarone HCl 400 MG TAB PO SCH (10:45)
[2020-11-13] MEDS: CEFAZOLIN 2 GM in Premix Bag 1 BAG IVPB SCH (17:22)
[2020-11-13] MEDS: Dronedarone HCl 400 MG TAB PO SCH (17:22)
[2020-11-13] MEDS: Acetaminophen 325 MG TAB PO PRN (20:51)
[2020-11-13] MEDS: Atorvastatin Calcium 40 MG TAB PO SCH (20:51)
[2020-11-13] MEDS: Polyethylene Glycol 3350 17 GM Packet PO SCH (20:51)
[2020-11-14] MEDS: CEFAZOLIN 2 GM in Premix Bag 1 BAG IVPB SCH ×3 (02:13→16:26)
[2020-11-14 03:44] LABS: #Eosinphils 0.5 thou/uL (0.0-0.7); #Lymphocytes 1.6 thou/uL (1.20-3.40); #Monocytes 0.9 thou/uL (0.11-0.59); #Neutrophils 5.4 thou/uL (1.40-6.50); %Basophils 0.2 % (0.0-1.0); %Eosinophils 5.7 % (0.0-10.0); %Lymphocytes 19.3 % (21.0-51.0); %Monocytes 10.6 % (0.0-10.0); %Neutrophils 64.1 % (42.0-75.0); Mean Corpuscular HGB CONC 31.7 g/dL (32.0-36.0); Mean Corpuscular Hemoglobin 29.3 pg (27.0-31.0); Mean Corpuscular Volume 92.4 fL (78.0-98.0); Mean Platelet Volume 9.5 fL (7.4-10.4); Platelet Count 193 thou/uL (130-400); RBC Distribution Width 13.6 % (11.5-14.5); White Blood Cell (WBC) Count 8.5 thou/uL (4.8-10.8)
[2020-11-14 04:03] LABS: Anion Gap 14 mmol/L (10-20); BUN (Urea Nitrogen) 24 mg/dL (9.8-20.1); Calc. Creatinine Clearance 29 mL/min (70-130); Calcium 9.3 mg/dL (7.8-10.44); Carbon Dioxide 25 mmol/L (23-31); Chloride 100 mmol/L (98-107); Glucose 95 mg/dL (83-110); Potassium 4.5 mmol/L (3.5-5.1); Sodium 134 mmol/L (136-145)
[2020-11-14] MEDS: Dronedarone HCl 400 MG TAB PO SCH ×2 (07:51→16:25)
[2020-11-14] MEDS: Nystatin 500,000 UNITS/5 ML UDCUP SSW SCH ×4 (07:51→21:31)
[2020-11-14] MEDS: Polyethylene Glycol 3350 17 GM Packet PO SCH ×2 (07:51→21:32)
[2020-11-14] MEDS: Carvedilol 3.125 MG TAB PO SCH (07:52)
[2020-11-14] MEDS: guaiFENesin ER 600 MG TAB PO SCH ×2 (07:52→21:31)
[2020-11-14] MEDS ORDERED: Carvedilol 6.25 MG TAB PO SCH (08:05)
[2020-11-14] MEDS: Carvedilol 6.25 MG TAB PO SCH ×2 (16:26→21:32)
[2020-11-14] MEDS: Atorvastatin Calcium 40 MG TAB PO SCH (21:31)
[2020-11-15] MEDS: CEFAZOLIN 2 GM in Premix Bag 1 BAG IVPB SCH ×4 (01:04→16:03)
[2020-11-15 04:09] LABS: Anion Gap 13 mmol/L (10-20); BUN (Urea Nitrogen) 21 mg/dL (9.8-20.1); Calc. Creatinine Clearance 31 mL/min (70-130); Calcium 9.3 mg/dL (7.8-10.44); Carbon Dioxide 25 mmol/L (23-31); Chloride 99 mmol/L (98-107); Glucose 107 mg/dL (83-110); Potassium 4.5 mmol/L (3.5-5.1); Sodium 132 mmol/L (136-145)
[2020-11-15] MEDS: Dronedarone HCl 400 MG TAB PO SCH ×2 (08:52→18:13)
[2020-11-15] MEDS: Carvedilol 6.25 MG TAB PO SCH (08:53)
[2020-11-15] MEDS: Acetaminophen 325 MG TAB PO PRN (08:54)
[2020-11-15] MEDS: guaiFENesin ER 600 MG TAB PO SCH ×2 (08:54→20:37)
[2020-11-15] MEDS: Polyethylene Glycol 3350 17 GM Packet PO SCH ×2 (08:55→20:37)
[2020-11-15] MEDS: Nystatin 500,000 UNITS/5 ML UDCUP SSW SCH ×4 (08:57→20:37)
[2020-11-15] MEDS: Atorvastatin Calcium 40 MG TAB PO SCH (20:38)
[2020-11-15] MEDS ORDERED: Carvedilol 6.25 MG TAB PO SCH (21:00)
[2020-11-16] MEDS: CEFAZOLIN 2 GM in Premix Bag 1 BAG IVPB SCH ×2 (00:45→09:08)
[2020-11-16 05:28] LABS: Anion Gap 14 mmol/L (10-20); BUN (Urea Nitrogen) 21 mg/dL (9.8-20.1); Calc. Creatinine Clearance 26 mL/min (70-130); Calcium 9.2 mg/dL (7.8-10.44); Carbon Dioxide 24 mmol/L (23-31); Chloride 99 mmol/L (98-107); Glucose 104 mg/dL (83-110); Potassium 4.7 mmol/L (3.5-5.1); Sodium 132 mmol/L (136-145)
[2020-11-16] MEDS: Carvedilol 6.25 MG TAB PO SCH ×3 (09:07→20:45)
[2020-11-16] MEDS: Dronedarone HCl 400 MG TAB PO SCH ×2 (09:07→17:57)
[2020-11-16] MEDS: Apixaban 2.5 MG TAB PO SCH ×2 (09:08→20:44)
[2020-11-16] MEDS: Polyethylene Glycol 3350 17 GM Packet PO SCH ×2 (09:08→20:45)
[2020-11-16] MEDS: Nystatin 500,000 UNITS/5 ML UDCUP SSW SCH ×4 (09:08→20:45)
[2020-11-16] MEDS: guaiFENesin ER 600 MG TAB PO SCH ×2 (09:08→20:45)
[2020-11-16] MEDS ORDERED: Calcium Carbonate 500 MG ChewTAB PO PRN (11:42)
[2020-11-16] MEDS: Preparation H Suppository PR PRN (18:39)
[2020-11-16] MEDS: Atorvastatin Calcium 40 MG TAB PO SCH (20:45)
[2020-11-16] MEDS: ceFAZolin 1 GM/D5W 1 GM in Premix Bag 1 BAG IVPB SCH (20:45)
[2020-11-17 05:06] LABS: Anion Gap 9 mmol/L (10-20); BUN (Urea Nitrogen) 21 mg/dL (9.8-20.1); Calc. Creatinine Clearance 29 mL/min (70-130); Calcium 9.2 mg/dL (7.8-10.44); Carbon Dioxide 26 mmol/L (23-31); Chloride 101 mmol/L (98-107); Glucose 102 mg/dL (83-110); Potassium 4.4 mmol/L (3.5-5.1); Sodium 132 mmol/L (136-145)
[2020-11-17] MEDS: Dronedarone HCl 400 MG TAB PO SCH ×2 (09:12→16:09)
[2020-11-17] MEDS: Apixaban 2.5 MG TAB PO SCH ×2 (09:12→21:00)
[2020-11-17] MEDS: Carvedilol 6.25 MG TAB PO SCH ×3 (09:12→20:39)
[2020-11-17] MEDS: Lisinopril 10 MG TAB PO SCH (09:13)
[2020-11-17] MEDS: Nystatin 500,000 UNITS/5 ML UDCUP SSW SCH ×4 (09:13→20:39)
[2020-11-17] MEDS: ceFAZolin 1 GM/D5W 1 GM in Premix Bag 1 BAG IVPB SCH ×2 (09:14→20:39)
[2020-11-17] MEDS: Preparation H Suppository PR PRN ×2 (09:14→12:25)
[2020-11-17] MEDS: guaiFENesin ER 600 MG TAB PO SCH ×2 (09:14→20:39)
[2020-11-17] MEDS: Polyethylene Glycol 3350 17 GM Packet PO SCH ×2 (09:17→20:39)
[2020-11-17] MEDS: Acetaminophen 325 MG TAB PO PRN (12:25)
[2020-11-17] MEDS: Atorvastatin Calcium 40 MG TAB PO SCH (20:38)
[2020-11-18] MEDS: Apixaban 2.5 MG TAB PO SCH (00:53)
[2020-11-18 06:53] LABS: Hemoglobin 9.3 g/dL (12.0-16.0)
[2020-11-18] MEDS: Polyethylene Glycol 3350 17 GM Packet PO SCH ×2 (08:53→20:37)
[2020-11-18] MEDS: Dronedarone HCl 400 MG TAB PO SCH ×2 (08:54→16:46)
[2020-11-18] MEDS: Aspirin 81 mg Enteric Coated Tablet PO SCH (08:54)
[2020-11-18] MEDS: Nystatin 500,000 UNITS/5 ML UDCUP SSW SCH ×4 (08:54→20:38)
[2020-11-18] MEDS: Lisinopril 10 MG TAB PO SCH (08:54)
[2020-11-18] MEDS: guaiFENesin ER 600 MG TAB PO SCH ×2 (08:54→20:37)
[2020-11-18] MEDS: Carvedilol 6.25 MG TAB PO SCH ×3 (08:55→20:37)
[2020-11-18] MEDS: Preparation H Suppository PR PRN ×2 (08:55→16:46)
[2020-11-18] MEDS: Atorvastatin Calcium 40 MG TAB PO SCH (20:37)
[2020-11-19] MEDS: Preparation H Suppository PR PRN (04:23)
[2020-11-19] MEDS: Polyethylene Glycol 3350 17 GM Packet PO SCH ×2 (08:41→21:34)
[2020-11-19] MEDS: Nystatin 500,000 UNITS/5 ML UDCUP SSW SCH ×4 (08:41→21:33)
[2020-11-19] MEDS: Lisinopril 10 MG TAB PO SCH (08:42)
[2020-11-19] MEDS: guaiFENesin ER 600 MG TAB PO SCH ×2 (08:42→21:33)
[2020-11-19] MEDS: Aspirin 81 mg Enteric Coated Tablet PO SCH (08:42)
[2020-11-19] MEDS: Dronedarone HCl 400 MG TAB PO SCH ×2 (08:42→16:46)
[2020-11-19] MEDS: Carvedilol 6.25 MG TAB PO SCH ×3 (08:42→22:18)
[2020-11-19] MEDS ORDERED: Preparation H Suppository PR PRN (09:45)
[2020-11-19] MEDS ORDERED: Nitroglycerin 2% Ointment 1 INCH/1 GM Packet TOP SCH (20:00)
[2020-11-19 20:12] LABS: #Eosinphils 0.3 thou/uL (0.0-0.7); #Lymphocytes 1.8 thou/uL (1.20-3.40); #Monocytes 1.3 thou/uL (0.11-0.59); #Neutrophils 5.7 thou/uL (1.40-6.50); %Basophils 0.4 % (0.0-1.0); %Eosinophils 3.4 % (0.0-10.0); %Lymphocytes 19.3 % (21.0-51.0); %Monocytes 14.6 % (0.0-10.0); %Neutrophils 62.2 % (42.0-75.0); Hemoglobin 9.1 g/dL (12.0-16.0); Mean Corpuscular Hemoglobin 30.4 pg (27.0-31.0); Mean Corpuscular Volume 92.2 fL (78.0-98.0); Mean Platelet Volume 8.9 fL (7.4-10.4); Platelet Count 225 thou/uL (130-400); RBC Distribution Width 13.9 % (11.5-14.5); Red Blood Cell (RBC) Count 2.99 mill/uL (4.20-5.40); White Blood Cell (WBC) Count 9.2 thou/uL (4.8-10.8)
[2020-11-19 20:33] LABS: ALT (SGPT) 11 U/L (8-55); AST (SGOT) 24 U/L (5-34); Albumin 3.4 g/dL (3.4-4.8); Alkaline Phosphatase 65 U/L (40-110); Anion Gap 14 mmol/L (10-20); BUN (Urea Nitrogen) 45 mg/dL (9.8-20.1); Bilirubin, Total 0.2 mg/dL (0.2-1.2); Calc. Creatinine Clearance 22 mL/min (70-130); Calcium 8.7 mg/dL (7.8-10.44); Carbon Dioxide 23 mmol/L (23-31); Chloride 98 mmol/L (98-107); Globulin 2.9 g/dL (2.4-3.5); Glucose 133 mg/dL (83-110); Magnesium 1.9 mg/dL (1.6-2.6); Phosphorus 3.5 mg/dL (2.3-4.7); Protein, Total 6.3 g/dL (5.8-8.1); Sodium 129 mmol/L (136-145)
[2020-11-19] MEDS ORDERED: HumaLOG 300 UNITS/3 ML VIAL SC SCH (21:15)
[2020-11-19] MEDS ORDERED: Dextrose 25% Abboject 10 ML SYRINGE SLOW IVP SCH (21:30)
[2020-11-19] MEDS: Atorvastatin Calcium 40 MG TAB PO SCH (21:33)
[2020-11-19] MEDS: Sodium Chloride 0.9% 500 ML IV SCH (21:40)
[2020-11-19] MEDS ORDERED: Carvedilol 6.25 MG TAB PO SCH (22:15)
[2020-11-19 22:50] LABS: Troponin I 0.028 ng/mL (< 0.028)
[2020-11-20] MEDS: Sodium Chloride 0.9% 500 ML IV SCH (03:06)
[2020-11-20 05:35] LABS: Anion Gap 12 mmol/L (10-20); BUN (Urea Nitrogen) 42 mg/dL (9.8-20.1); Calc. Creatinine Clearance 24 mL/min (70-130); Calcium 8.5 mg/dL (7.8-10.44); Carbon Dioxide 23 mmol/L (23-31); Chloride 99 mmol/L (98-107); Glucose 88 mg/dL (83-110); Magnesium 1.9 mg/dL (1.6-2.6); Sodium 129 mmol/L (136-145)
[2020-11-20] MEDS: Polyethylene Glycol 3350 17 GM Packet PO SCH ×2 (09:02→21:08)
[2020-11-20] MEDS: Aspirin 81 mg Enteric Coated Tablet PO SCH (09:02)
[2020-11-20] MEDS: Lisinopril 10 MG TAB PO SCH (09:03)
[2020-11-20] MEDS: Carvedilol 6.25 MG TAB PO SCH ×3 (09:03→21:06)
[2020-11-20] MEDS: Nystatin 500,000 UNITS/5 ML UDCUP SSW SCH ×4 (09:03→21:08)
[2020-11-20] MEDS: guaiFENesin ER 600 MG TAB PO SCH ×2 (09:03→21:06)
[2020-11-20] MEDS: Dronedarone HCl 400 MG TAB PO SCH ×2 (09:03→16:58)
[2020-11-20 11:39] VITALS: BMI 18.3
[2020-11-20] MEDS: Atorvastatin Calcium 40 MG TAB PO SCH (21:06)
[2020-11-21 07:06] LABS: Anion Gap 12 mmol/L (10-20); BUN (Urea Nitrogen) 35 mg/dL (9.8-20.1); Calc. Creatinine Clearance 27 mL/min (70-130); Calcium 9.1 mg/dL (7.8-10.44); Carbon Dioxide 24 mmol/L (23-31); Chloride 100 mmol/L (98-107); Glucose 115 mg/dL (83-110); Magnesium 1.9 mg/dL (1.6-2.6); Potassium 4.9 mmol/L (3.5-5.1); Sodium 131 mmol/L (136-145)
[2020-11-21] MEDS: Dronedarone HCl 400 MG TAB PO SCH (08:38)
[2020-11-21] MEDS: Aspirin 81 mg Enteric Coated Tablet PO SCH (08:38)
[2020-11-21] MEDS: Nystatin 500,000 UNITS/5 ML UDCUP SSW SCH ×2 (08:39→15:12)
[2020-11-21] MEDS: Polyethylene Glycol 3350 17 GM Packet PO SCH (08:39)
[2020-11-21] MEDS: guaiFENesin ER 600 MG TAB PO SCH (08:39)
[2020-11-21] MEDS: Lisinopril 10 MG TAB PO SCH (08:39)
[2020-11-21] MEDS ORDERED: Loratadine 10 MG TAB PO SCH (09:00)
[2020-11-21] MEDS ORDERED: Cetirizine HCl 10 MG TAB PO SCH (09:00)
[2020-11-21] MEDS ORDERED: Carvedilol 6.25 MG TAB PO SCH (09:00)
[2020-11-21] MEDS ORDERED: Preparation H Suppository PR PRN (09:30)
[2020-11-21 10:56] VITALS: TEMP 97.5
[2020-11-21 11:40] VITALS: BP 111/59
== END 2020-11-21 15:13 | DRG 242 ==
LOC: ERS 07:57 → ERHOLD 10:57 → CCU 15:27 → IMCU/EMU 11-11 13:31 → 2NO 11-15 19:37
PROVIDERS: ADMIT Internal Medicine Cardiovascular Disease; ATTEND Internal Medicine
PROC: 02H633Z Insertion of Infusion Device into Right Atrium, Percutaneous Approach (ICD-10-PCS; principal; 2020-11-09)
PROC: 3E033XZ Introduction of Vasopressor into Peripheral Vein, Percutaneous Approach (ICD-10-PCS; 2020-11-09)
PROC: 0JH606Z Insertion of Pacemaker, Dual Chamber into Chest Subcutaneous Tissue and Fascia, Open Approach (ICD-10-PCS; 2020-11-13)
PROC: 02HK3JZ Insertion of Pacemaker Lead into Right Ventricle, Percutaneous Approach (ICD-10-PCS; 2020-11-13)
PROC: 02H63JZ Insertion of Pacemaker Lead into Right Atrium, Percutaneous Approach (ICD-10-PCS; 2020-11-13)
DX: I13.0 Hypertensive heart and chronic kidney disease with heart failure and stage 1 through stage 4 chronic kidney disease, or unspecified chronic kidney disease (principal); Z66 Do not resuscitate; Z51.5 Encounter for palliative care; Z20.822 Contact with and (suspected) exposure to COVID-19; I50.33 Acute on chronic diastolic (congestive) heart failure; J96.01 Acute respiratory failure with hypoxia; B37.0 Candidal stomatitis; N17.9 Acute kidney failure, unspecified; K62.5 Hemorrhage of anus and rectum; I25.10 Atherosclerotic heart disease of native coronary artery without angina pectoris; N18.2 Chronic kidney disease, stage 2 (mild); K21.00 Gastro-esophageal reflux disease with esophagitis, without bleeding; K44.9 Diaphragmatic hernia without obstruction or gangrene; I49.5 Sick sinus syndrome; J42 Unspecified chronic bronchitis; J44.9 Chronic obstructive pulmonary disease, unspecified; L53.8 Other specified erythematous conditions; M81.0 Age-related osteoporosis without current pathological fracture; I71.2 Thoracic aortic aneurysm, without rupture; K22.2 Esophageal obstruction; I35.0 Nonrheumatic aortic (valve) stenosis; E78.5 Hyperlipidemia, unspecified; E78.00 Pure hypercholesterolemia, unspecified; I27.20 Pulmonary hypertension, unspecified; I07.1 Rheumatic tricuspid insufficiency; I95.9 Hypotension, unspecified; T44.7X5A Adverse effect of beta-adrenoreceptor antagonists, initial encounter; E86.1 Hypovolemia; I48.0 Paroxysmal atrial fibrillation; R07.9 Chest pain, unspecified; R91.8 Other nonspecific abnormal finding of lung field; Z88.2 Allergy status to sulfonamides; Z79.01 Long term (current) use of anticoagulants; Z79.82 Long term (current) use of aspirin; Z79.899 Other long term (current) drug therapy; Z95.1 Presence of aortocoronary bypass graft; Z90.710 Acquired absence of both cervix and uterus; Z87.440 Personal history of urinary (tract) infections; Z95.5 Presence of coronary angioplasty implant and graft; I25.2 Old myocardial infarction
CPT/HCPCS: 33208; 36415; 36556; 51702; 71045; 80048; 80053; 81003; 82553; 83735; 83880; 84100; 84145; 84443; 84484; 85014; 85018; 85025; 87635; 93005; 93010; 93306; 93798; 94640; 96365; 96366; 96368; 96374; 96375; 96376; 99152; C1785; C1898; J0461; J0690; J0692; J1160; J1250; J1265; J1580; J1644; J1815; J1940; J2001; J2250; J2405; J3010; J3370; J3490; J7512; J7620; P9045; Q0162; Q9967; U0003; U0005